=== PATIENT | male | born 2000 | race African-American/Black ===

== ENCOUNTER 2020-07-17 11:37 | Emergency (ER) | payer SELFPAY ==
[~2020-07-17] VITALS: Ht 193 cm; Wt 115.9 kg
[2020-07-17 11:42] VITALS: TEMP 98
[2020-07-17] MEDS ORDERED: NORCO 325 MG-51 TAB PO (13:18)
[2020-07-17] MEDS ORDERED: CRUTCHES MC (13:18)
[2020-07-17 13:28] VITALS: BP 135/81; PULSE 82
== END 2020-07-17 13:29 | disposition home or self-care (01) ==
LOC: COL.ER 11:37
DX: S93.401A Sprain of unspecified ligament of right ankle, initial encounter (principal); X50.1XXA Overexertion from prolonged static or awkward postures, initial encounter; Y92.410 Unspecified street and highway as the place of occurrence of the external cause